=== PATIENT | female | born 1975 | race Caucasian/White ===

== ENCOUNTER 2019-08-17 10:17 | Emergency (ER) | payer OTHER ==
[~2019-08-17] VITALS: Ht 167.6 cm; Wt 92.1 kg
[~2019-08-17 10:17] MED LIST: AMOXICILLIN500 MG PO; IBUPROFEN800 MG PO; NORCO 5-325 TA1 EACH PO
[2019-08-17] MEDS ORDERED: VENTOLIN HFA18 GM INH (12:09)
== END 2019-08-17 10:30 | disposition home or self-care (01) ==
LOC: ED 10:17
DX: R05 Cough (principal)